=== PATIENT | female | born 1990 | race Two or more races ===

== ENCOUNTER 2025-02-07 10:38 | Emergency (ER) | payer OTHER ==
[~2025-02-07] VITALS: Ht 165.1 cm; Wt 64.4 kg
[2025-02-07 11:32] VITALS: BP 127/79; O2SAT 99
[2025-02-07 12:50] LABS: HEMATOCRIT 36.4 % (36.0-45.00); HEMOGLOBIN 12.7 g/dL (12.0-15.00); MEAN CELL VOLUME 92.5 fL (80.00-100.00); MEAN CORPUSCULAR HEMOGLOBIN 32.2 pg (27.00-32.0); MEAN CORPUSCULAR HGB CONC 34.8 g/dl (32.0-36.0); PLATELET COUNT 181 K/uL (150-450); RED BLOOD COUNT 3.93 M/uL (4.00-6.00); RED CELL DISTRIBUTION WIDTH 13.3 % (11.5-14.5)
[2025-02-07 13:15] LABS: CREATININE SERUM 0.44 mg/dL (0.55-1.02); GFR 161.79; POTASSIUM 3.5 mEq/L (3.5-5.1)
[2025-02-07 13:15] LABS: PH,URINE 7.5 (5.0-8.0); URINE APPEARANCE Clear; URINE BILIRRUBIN Negative (NEGATIVE); URINE BLOOD Trace; URINE COLOR Yellow; URINE GLUCOSE Negative (NEGATIVE); URINE KETONE Negative (NEGATIVE); URINE LEUKOCYTE Trace; URINE NITRATE Negative; URINE PROTEIN Negative (NEGATIVE); URINE UROBILINOGEN 0.2 E.U./dl
[2025-02-07 13:20] LABS: URINE BACTERIA 304.7 uL (0.0-1933); URINE EPITHELIAL CELLS 8.6 uL (0.0-38.8); URINE RBC 20.7 uL (0.0-20.8); URINE WBC 8.8 uL (0.0-23.2)
[2025-02-07 13:24] LABS: URINE CAST 0.14 uL (0.0-1.40)
== END 2025-02-07 16:37 | disposition home or self-care (01) ==
LOC: ER 10:39
PROVIDERS: General Practice
DX: R11.10 Vomiting, unspecified (principal)

== ENCOUNTER 2025-05-04 15:00 | Inpatient (IN) | payer OTHER ==
[~2025-05-04] VITALS: Ht 165.1 cm; Wt 3.2 kg
[2025-05-17] MEDS ORDERED: PRENATAL TABLE1 EAC1 PO (13:26)
[2025-05-17 20:20] VITALS: BP 135/71
[2025-05-17] MEDS ORDERED: MORPHINE SULFATE 4 MG/ML CARTRIDGE IV PRN (20:30)
[2025-05-17] MEDS ORDERED: RINGERS SOLUTION,LACTATED 1,000 ML IV SCH (20:30)
[2025-05-17 20:43] VITALS: BP 132/59
[2025-05-17 23:44] VITALS: BP 137/82
[2025-05-18 02:01] VITALS: BP 134/63
[2025-05-18 03:20] VITALS: BP 136/61
[2025-05-18 07:35] VITALS: BP 134/69
[2025-05-18] MEDS ORDERED: FAMOTIDINE/PF 20 MG/2 ML VIAL IV ONE (08:00)
[2025-05-18 11:05] VITALS: BP 148/81
[2025-05-18] MEDS ORDERED: OXYTOCIN 500 ML IV SCH (13:45)
[2025-05-18] MEDS ORDERED: TERBUTALINE SULFATE 1 MG/ML AMPUL SUBCUTANEO ONE (14:52)
[2025-05-18] MEDS ORDERED: CEFAZOLIN SODIUM 1,000 MG VIAL IV ONE (15:45)
[2025-05-18] MEDS ORDERED: KETOROLAC TROMETHAMINE 60 MG VIAL IM NR (16:15)
[2025-05-18] MEDS ORDERED: MORPHINE SULFATE 4 MG/ML CARTRIDGE IV SCH (17:00)
[2025-05-18] MEDS ORDERED: MORPHINE SULFATE 4 MG/ML VIAL IV ONE (18:00)
[2025-05-18 19:55] VITALS: BP 119/58
[2025-05-18 23:18] LABS: BASO % 0.1 % (0.1-1.2); EOS # 0.00 (0.04-0.54); EOS % 0.0 % (0.7-7.0); LYMPH # 0.97 (1.18-3.74); LYMPH % 4.7 % (19.3-53.1); MEAN PLATELET VOLUME 12.70 fl (9.4-12.4); MONO # 1.00 (0.24-0.82); MONO % 4.8 % (4.7-12.5); NEUT # 18.73 (1.56-6.13); NEUT % 89.7 % (34.0-71.1); RED CELL DISTRIBUTION WIDTH 12.8 % (11.6-14.4)
[2025-05-19 00:33] VITALS: BP 115/70
[2025-05-19 08:16] VITALS: BP 110/71; O2SAT 98
[2025-05-19] MEDS ORDERED: SIMETHICONE 125 MG CAPSULE PO SCH (09:00)
[2025-05-19] MEDS ORDERED: DOCUSATE SODIUM 100MG CAP PO SCH (09:00)
[2025-05-19 12:50] VITALS: BP 107/70; O2SAT 99
[2025-05-19 16:00] VITALS: BP 132/80
[2025-05-19] MEDS ORDERED: HYDROCORTISONE ACETATE 25 MG/SUPP.RECT SUPP.RECT RECTAL SCH (17:00)
[2025-05-20 00:50] VITALS: BP 115/68
[2025-05-20 08:22] VITALS: BP 112/74
[2025-05-20] MEDS ORDERED: IBU800 MG PO (11:50)
[2025-05-20] MEDS ORDERED: COLACE100 MG PO (11:50)
[2025-05-22] MEDS ORDERED: OXYTOCIN 10 UNITS/ML VIAL IV ONE (14:00)
[2025-05-22] MEDS ORDERED: ERYTHROMYCIN BASE OPHT 1GM EACH TUBE OP ONE (14:00)
[2025-05-22] MEDS ORDERED: CEFAZOLIN SODIUM 1,000 MG VIAL IV ONE (14:00)
== END 2025-05-20 15:49 | disposition home or self-care (01) | DRG 788 ==
LOC: OB/GYN 05-17 15:00 → LDR 05-17 20:27 → O/R 05-18 15:43 → OB/GYN 05-18 15:59
PROVIDERS: ADMIT Specialist; ATTEND Specialist
PROC: 4A1HXCZ Monitoring of Products of Conception, Cardiac Rate, External Approach (ICD-10-PCS; 2025-05-17)
PROC: 10D00Z1 Extraction of Products of Conception, Low, Open Approach (ICD-10-PCS; principal; 2025-05-18 17:00)
DX: O76 Abnormality in fetal heart rate and rhythm complicating labor and delivery (principal); O36.8330 Maternal care for abnormalities of the fetal heart rate or rhythm, third trimester, not applicable or unspecified; Z3A.40 40 weeks gestation of pregnancy; Z37.0 Single live birth

== ENCOUNTER 2025-05-17 13:13 | Outpatient (CLI) | payer OTHER ==
[~2025-05-17] VITALS: Ht 160 cm; Wt 68.9 kg
[2025-05-17 12:37] VITALS: BP 139/80
[2025-05-17] MEDS ORDERED: PRENATAL TABLE1 EAC1 PO (13:26)
[2025-05-17] MEDS ORDERED: RINGERS SOLUTION,LACTATED 1,000 ML IV SCH (13:45)
[2025-05-17 14:12] LABS: BASO % 0.3 % (0.1-1.2); EOS # 0.01 (0.04-0.54); EOS % 0.1 % (0.7-7.0); LYMPH # 1.61 (1.18-3.74); LYMPH % 10.3 % (19.3-53.1); MEAN PLATELET VOLUME 12.40 fl (9.4-12.4); MONO # 0.91 (0.24-0.82); MONO % 5.8 % (4.7-12.5); NEUT # 12.98 (1.56-6.13); NEUT % 82.8 % (34.0-71.1); RED CELL DISTRIBUTION WIDTH 12.5 % (11.6-14.4)
[2025-05-17 14:14] LABS: URINE APPEARANCE Clear; URINE BILIRRUBIN Negative (NEGATIVE); URINE BLOOD Large; URINE COLOR Yellow; URINE GLUCOSE Negative (NEGATIVE); URINE LEUKOCYTE Small; URINE NITRATE Negative; URINE PROTEIN Negative (NEGATIVE); URINE UROBILINOGEN 0.2 E.U./dl
[2025-05-17 14:19] LABS: URINE BACTERIA 61.1 uL (0.0-1933); URINE EPITHELIAL CELLS 7.5 uL (0.0-38.8); URINE RBC 6.0 uL (0.0-20.8); URINE WBC 6.1 uL (0.0-23.2)
[2025-05-17 14:23] LABS: URINE CAST 0.00 uL (0.0-1.40); URINE KETONE 40 (NEGATIVE)
[2025-05-17 14:35] LABS: INR < 0.93
[2025-05-17 15:13] LABS: ALT/SGPT 38.0 U/L (12-78); AST/SGOT 29.0 U/L (15-37); BILIRUBIN TOTAL 0.42 mg/dL (0.3-1.2); BUN CREA RATIO 17.0 (7.0-25.0); CREATININE SERUM 0.52 mg/dL (0.55-1.02); GFR 133.43; GLOBULINA 3.7 G/DL (2.4-3.5); GLUCOSE FASTING 82.0 mg/dL (65-100); OSMOLALITY SERUM 273.0 MOSM/KG (275-295)
[2025-05-17 15:23] VITALS: BP 132/72
[2025-05-17] MEDS ORDERED: MORPHINE SULFATE 4 MG/ML CARTRIDGE IV ONE (16:15)
== END 2025-05-17 20:27 | disposition still patient (30) ==
LOC: OBS/DEL 13:13
PROVIDERS: ATTEND Specialist
DX: O26.893 Other specified pregnancy related conditions, third trimester (principal)